=== PATIENT | female | born 2000 | race Caucasian/White ===

== ENCOUNTER 2021-06-13 09:14 | Emergency (ER) | payer BC ==
[~2021-06-13 09:14] MED LIST: AZITHROMYCIN500 MG PO; MEDROL4 MG PO
[2021-06-13 09:39] LABS: HEMOGLOBIN 13.1 gm/dl (12.3-15.3); RED BLOOD COUNT 4.62 M/UL (4.00-5.10); WHITE BLOOD COUNT 8.4 K/UL (4.5-11.0)
[2021-06-13 10:11] LABS: BUN/CREATININE RATIO 9 (0-10)
[2021-06-13] MEDS ORDERED: AMOX TR-K CLV1 EAC4 PO (14:36)
[2021-06-13] MEDS ORDERED: FLOMAX0.4 MG PO (14:36)
[2021-06-13] MEDS ORDERED: CLARITIN10 M2 PO (14:36)
[2021-06-13] MEDS ORDERED: ZOFRAN 4 MG TAB4 MG PO (14:36)
[2021-06-13] MEDS ORDERED: CYCLOBENZAPRINE10 MG PO (14:36)
[2021-06-13] MEDS ORDERED: FLONASE 0.05% N16 GM (14:36)
== END 2021-06-13 14:50 | disposition home or self-care (01) ==
LOC: ER1 09:14
PROVIDERS: Emergency Medicine
DX: O26.851 Spotting complicating pregnancy, first trimester (principal); O99.891 Other specified diseases and conditions complicating pregnancy; M54.31 Sciatica, right side; R10.9 Unspecified abdominal pain; Z3A.10 10 weeks gestation of pregnancy; Z87.442 Personal history of urinary calculi
CPT/HCPCS: 76815; 80053; 81001; 84702; 85025; 86900; 86901; 87086; 99284; J2270; J2405

== ENCOUNTER 2021-12-15 14:05 | Inpatient (IN) | payer BC ==
[~2021-12-15] VITALS: Ht 167.6 cm; Wt 131.5 kg
[~2021-12-15 14:05] MED LIST changes: +AMOX TR-K CLV1 EAC4 PO; +CLARITIN10 M2 PO; +CYCLOBENZAPRINE10 MG PO; +FLOMAX0.4 MG PO; +FLONASE 0.05% N16 GM; +ZOFRAN 4 MG TAB4 MG PO
[2021-12-15 14:44] LABS: HEMOGLOBIN 10.7 gm/dl (12.3-15.3); RED BLOOD COUNT 3.71 M/UL (4.00-5.10); WHITE BLOOD COUNT 10.8 K/UL (4.5-11.0)
[2021-12-15 15:02] LABS: BUN/CREATININE RATIO 11 (0-10)
[2021-12-15] MEDS ORDERED: PRENATAL VITAM1 EAC3 PO (17:55)
[2021-12-16] MEDS ORDERED: HYDROCODON-ACE1 EAC6 PO (10:30)
[2021-12-16] MEDS ORDERED: IBUPROFEN600 MG PO (10:30)
[2021-12-16] MEDS ORDERED: COLACE 100MG C100 MG PO (10:30)
[2021-12-17 06:33] LABS: HEMOGLOBIN 9.4 gm/dl (12.3-15.3)
[2021-12-18] MEDS ORDERED: FERROUS SULFAT325 MG PO (10:18)
== END 2021-12-18 13:38 | disposition home or self-care (01) | DRG 787 ==
LOC: GENOP 14:05 → OB 17:52
PROVIDERS: Obstetrics & Gynecology; ADMIT Obstetrics & Gynecology
PROC: 10D00Z1 Extraction of Products of Conception, Low, Open Approach (ICD-10-PCS; principal; 2021-12-16 10:38)
DX: O14.94 Unspecified pre-eclampsia, complicating childbirth (principal); D62 Acute posthemorrhagic anemia; O99.214 Obesity complicating childbirth; O99.824 Streptococcus B carrier state complicating childbirth; E66.9 Obesity, unspecified; O90.81 Anemia of the puerperium; Z88.2 Allergy status to sulfonamides; Z82.49 Family history of ischemic heart disease and other diseases of the circulatory system; Z37.0 Single live birth; Z3A.37 37 weeks gestation of pregnancy; Z98.890 Other specified postprocedural states; Z83.3 Family history of diabetes mellitus
CPT/HCPCS: 36415; 80053; 82570; 82800; 83615; 84156; 84550; 85014; 85018; 85025; C9113; J0690; J1200; J1650; J2274; J2405; J2590; J3010